=== PATIENT | male | born 1955 | race African-American/Black ===

== ENCOUNTER 2023-10-30 14:36 | Emergency (ER) | payer MEDICAID ==
[~2023-10-30] VITALS: Ht 185.4 cm; Wt 73.0 kg
[2023-10-30 14:39] VITALS: O2SAT 100
[2023-10-30 17:52] VITALS: BP 148/97; PULSE 62; RESP 18; TEMP 98.2
== END 2023-10-30 19:18 | disposition home or self-care (01) ==
LOC: ER 14:36
DX: H40.9 Unspecified glaucoma (principal); I10 Essential (primary) hypertension
CPT/HCPCS: 99283